=== PATIENT | male | born 1985 ===

== ENCOUNTER 2017-01-13 08:38 | Inpatient (IN) | payer OTHER ==
[2017-01-13] MEDS ORDERED: Sodium Chloride 0.9% 1,000 ML IV STA ×2 (08:55→12:11)
[2017-01-13] MEDS ORDERED: TDAP Vaccine 0.5 mL Syr IM ONE (08:58)
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
[2017-01-13 09:32] LABS: BASO # 0.1 K/uL (0.0-0.2); BASO % 1.1 % (0.0-2.0); EOS # 0.1 K/uL (0.0-0.7); EOS % 1.4 % (0.0-4.0); HEMATOCRIT 43.4 % (35.0-51.0); LYMPH # 2.5 K/uL (1.0-4.3); LYMPH % 38.1 % (20.0-40.0); MEAN CELL VOLUME 91.3 fl (80.0-94.0); MEAN CORPUSCULAR HEMOGLOBIN 31.5 pg (27.0-31.0); MEAN CORPUSCULAR HGB CONC 34.6 g/dL (33.0-37.0); MONO # 0.5 K/uL (0.0-0.8); MONO % 7.9 % (0.0-10.0); NEUT # 3.4 K/uL (1.8-7.0); NEUT % 51.5 % (50.0-75.0); NRBC % 0.2 % (0.0-0.0); WHITE BLOOD COUNT 6.7 K/uL (4.8-10.8)
[2017-01-13 09:47] LABS: PARTIAL THROMBOPLASTIN TIME 26.6 Seconds (25.6-37.1)
[2017-01-13 09:54] LABS: ALB/GLOB RATIO 1.3 (1.0-2.1); ALKALINE PHOSPHATASE 79 U/L (38-126); ALT/SGPT 40 U/L (21-72); AST/SGOT 31 U/L (17-59); BILIRUBIN,TOTAL 0.6 mg/dl (0.2-1.3); BLOOD UREA NITROGEN 18 mg/dl (9-20); CALCIUM 9.7 mg/dL (8.4-10.2); CARBON DIOXIDE 25 mmol/L (22-30); CHLORIDE 103 mmol/L (98-107); GFR AFRICAN-AMERICAN > 60; GLUCOSE,RANDOM 102 mg/dL (75-110); POTASSIUM 3.8 MMOL/L (3.6-5.0); SODIUM 142 mmol/l (132-148); TOTAL PROTEIN 8.8 G/DL (6.3-8.2)
--- NOTE | 2017-01-13 10:32 | CT ---
PROCEDURE: CT HEAD WITHOUT CONTRAST. HISTORY: Fall COMPARISON: None available. TECHNIQUE: Axial computed tomography images were obtained through the head/brain without intravenous contrast. Radiation dose: Total exam DLP = 920.29 mGy-cm. This CT exam was performed using one or more of the following dose reduction techniques: Automated exposure control, adjustment of the mA and/or kV according to patient size, and/or use of iterative reconstruction technique. FINDINGS: HEMORRHAGE: No intracranial hemorrhage. BRAIN: Large soft tissue hematoma superior posterior scalp. No mass effect or edema. The molina-white matter differentiation appears intact. Please note that MRI with diffusion imaging is more sensitive in the detection of acute ischemic event. VENTRICLES: No hydrocephalus. CALVARIUM: Unremarkable. PARANASAL SINUSES: Unremarkable as visualized. No significant inflammatory changes. MASTOID AIR CELLS: Unremarkable as visualized. No inflammatory changes. OTHER FINDINGS: Deviated nasal septum. IMPRESSION: Large soft tissue hematoma, superior posterior scalp.
--- NOTE | 2017-01-13 10:46 | CT ---
PROCEDURE: CT scan cervical spine 01/13/2017 HISTORY: Fall COMPARISON: No prior TECHNIQUE: Contiguous helical/ transaxial computed tomography images were obtained of the cervical spine without the use of intravenous contrast. Coronal and sagittal reformatted images were created and reviewed. Radiation dose: Total exam DLP = 584.89 mGy-cm. This CT exam was performed using one or more of the following dose reduction techniques: Automated exposure control, adjustment of the mA and/or kV according to patient size, and/or use of iterative reconstruction technique. FINDINGS: VERTEBRAE: Current study reveals no acute compression fractures no retropulsed fragments. Vertebral bodies exhibit relatively normal stature. There is straightening of the normal cervical lordosis likely in part due to presence of a hard cervical collar. Muscle spasm may contribute. Vertebral bodies otherwise exhibit normal alignment. Facets normally aligned. DISCS/SPINAL CANAL/NEURAL FORAMINA: The mild degenerative spondylosis. At the C5-C6 level, there is minor disc space narrowing along the posterior disc margin with small osteophytic ridge disc bulge complex. The uncovertebral and facets slightly overgrown. Central canal and exit foramina appear adequate. Remaining levels exhibit relatively adequate disc height. No disc herniation or significant disc bulge. Central canal and exit foramina appear adequate. PARASPINAL SOFT TISSUES: Prevertebral and and paraspinal soft tissues unremarkable OTHER FINDINGS: Lung apices clear. IMPRESSION: No fracture seen. Mild straightening of the normal upper cervical lordosis. Minor degenerative spondylosis most notably affecting C5-C6 level. No evidence of any significant canal nor foraminal stenosis.
--- NOTE | 2017-01-13 10:51 | CT ---
PROCEDURE: CT scan lumbar spine dated 01/13/2017 HISTORY: Status post fall COMPARISON: No prior TECHNIQUE: Contiguous helical/transaxial computed tomography images were obtained of the lumbar spine without the use of intravenous contrast. Coronal and sagittal reformatted images were created and reviewed. Radiation dose: Total exam DLP = 1549.55 mGy-cm. This CT exam was performed using one or more of the following dose reduction techniques: Automated exposure control, adjustment of the mA and/or kV according to patient size, and/or use of iterative reconstruction technique. FINDINGS: Current study reveals no evidence of acute displaced or compression fracture nor retropulsed fragments. Vertebral bodies exhibit normal stature . There is straightening of the normal lumbar lordosis however vertebral bodies otherwise exhibit normal alignment. Facets normally aligned. There is mild posterior disc space narrowing seen at the L5-S1 level. Small central and bilateral (left slightly larger than right) disc herniation indents the ventral surface of the thecal sac however the overall central canal is quite capacious at this level. Facet joints are slightly overgrown. Exit foramina appear adequate. At the L4-L5 level, there is also mild posterior disc space narrowing with small to medium-sized central and bilateral disc bulge that also compresses the ventral surface of the thecal sac. Central canal appears adequate. Facets a prominent. Exit foramina are adequate. Remaining levels exhibit adequate disc height. No disc herniation or significant disc bulge. Central canal and exit foramina appear adequate at the remaining levels. Note made of a distended urinary bladder nonspecific. Impression: No acute fractures. Minor degenerative spondylosis L5-S1 and L4-L5 levels as described above with small disc herniations and mild to moderate disc bulging changes at each level respectively.
--- NOTE | 2017-01-13 11:46 | RAD ---
HISTORY: Fall COMPARISON: No prior study available for comparison FINDINGS: LUNGS: Mild bibasilar atelectasis. . There is a rounded approximately 11 mm left on medial lung bodies overlying the left cardiac border. This could represent a granuloma however follow-up of CT scan of the chest is recommended to exclude parenchymal nodule or mass. Note that these findings were discussed with Dr. Baldwin at 11:15 a.m. with written down and read back verification. PLEURA: No significant pleural effusion identified, no pneumothorax apparent. CARDIOVASCULAR: Heart appears borderline enlarged. OSSEOUS STRUCTURES: Incidental note is made of a slight cortical irregularity superomedial aspect of the left scapula. Rule out nondisplaced fracture versus anatomic variation VISUALIZED UPPER ABDOMEN: Normal. OTHER FINDINGS: None. IMPRESSION: Mild bibasilar atelectasis. Mild bibasilar atelectasis. . There is a rounded approximately 11 mm left on medial lung bodies overlying the left cardiac border. This could represent a granuloma however follow-up of CT scan of the chest is recommended to exclude parenchymal nodule or mass. Slight cortical regularity superomedial aspect left scapula ; rule out nondisplaced fracture Note that these findings were discussed with Dr. Baldwin at 11:30 a.m. with written down and read back verification.
[2017-01-13 12:17] LABS: RBC URINE 4 /hpf (0-3); URINE BILIRUBIN NEGATIVE (NEGATIVE); URINE BLOOD SMALL (NEGATIVE); URINE COLOR STRAW (YELLOW); URINE GLUCOSE (UA) NEG (Normal); URINE KETONE NEGATIVE (NEGATIVE); URINE LEUKOCYTE ESTERASE NEG Leu/uL (Negative); URINE PROTEIN NEGATIVE (NEGATIVE); URINE UROBILINOGEN 0.2-1.0 mg/dL (0.2-1.0); WBC URINE < 1 /hpf (0-5)
--- NOTE | 2017-01-13 12:22 | RAD ---
PROCEDURE: Radiographs of the pelvis. HISTORY: Fall COMPARISON: Correlation made with the concurrent CT scan of the mid lumbar spine which partially image the pelvis. FINDINGS: BONES: Pelvic Bones: Unremarkable. Hips: Grossly unremarkable. JOINTS: Sacroiliac Joints: Unremarkable Pubic Symphysis: Unremarkable. OTHER FINDINGS: Note made of a small curvilinear calcification overlying the right true pelvis nonspecific IMPRESSION: No evidence of acute displaced fracture nor dislocation. Up of
[2017-01-13] MEDS ORDERED: Silver Sulfadiazine 1% CREAM (50 gm) ONE (13:42)
[2017-01-13] MEDS: Silver Sulfadiazine 1% CREAM (50 gm) TOP SCH (14:36)
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
[2017-01-13] MEDS: Oxycodone/Acetaminophen 5/325 mg Tab PO PRN ×2 (17:27→22:28)
--- NOTE | 2017-01-13 17:31 | RAD ---
PROCEDURE: Right shoulder dated 01/13/2017. HISTORY: fracture COMPARISON: No prior. TECHNIQUE: Two views of the right shoulder performed FINDINGS: Current study reveals no definitive radiographic evidence of acute displaced fracture nor dislocation. The osseous structures intact. No significant osteoarthritis. IMPRESSION: No evidence of acute displaced fracture nor dislocation. If symptoms persist, consider followup CT scan or MRI if further evaluation is required
--- NOTE | 2017-01-13 17:33 | RAD ---
PROCEDURE: Right hip dated 01/13/2017 at 4:55 p.m. HISTORY: fracture COMPARISON: Comparison made with pelvis dated 01/13/2017 at 0957 hours FINDINGS: BONES: No evidence of acute displaced fracture nor dislocation. The osseous structures appear intact. Both femoral heads are appropriately located within the respective acetabula. JOINTS: Joint spaces preserved SOFT TISSUES: Normal. OTHER FINDINGS: None. IMPRESSION: No fracture seen. If symptoms persist or occult fracture suspected clinically recommend repeat followup CT scan of the pelvis and hips.
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
[2017-01-14] MEDS: Oxycodone/Acetaminophen 5/325 mg Tab PO PRN ×2 (04:32→20:37)
[2017-01-14] MEDS: Silver Sulfadiazine 1% CREAM (50 gm) TOP SCH ×3 (09:54→16:49)
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
--- NOTE | 2017-01-14 13:34 | CP.PCM.PN ---
Subjective - Date & Time of Evaluation Date of Evaluation: 01/14/17 Time of Evaluation: 13:30 - Subjective Subjective: No chest pain. NS on monitor Headache, blurry vision ,nausea and vomiting Objective - Vital Signs/Intake and Output Vital Signs (last 24 hours): Temp Pulse Resp BP Pulse Ox 98.4 F 66 20 120/68 99 01/14/17 12:11 01/14/17 12:11 01/14/17 12:11 01/14/17 12:11 01/14/17 12:11 - Medications Medications: Current Medications Acetaminophen (Tylenol 325mg Tab) 650 mg PO Q6 PRN PRN Reason: Headache Last Admin: 01/14/17 10:44 Dose: 650 mg Ondansetron HCl (Zofran Inj) 4 mg IVP Q6 PRN PRN Reason: Nausea/Vomiting Last Admin: 01/14/17 09:58 Dose: 4 mg Oxycodone/Acetaminophen (Percocet 5/325 Mg Tab) 1 tab PO Q4 PRN PRN Reason: Pain, moderate (4-7) Stop: 01/16/17 16:23 Last Admin: 01/14/17 04:32 Dose: 1 tab Silver Sulfadiazine (Silvadene 1% 50 Gm) 1 applic TOP TID BECKY Last Admin: 01/14/17 12:05 Dose: 1 applic - Labs Labs: PT 10.6 Seconds (9.8-13.1) 01/13/17 09:25 INR 0.9 (0.9-1.2) 01/13/17 09:25 APTT 26.6 Seconds (25.6-37.1) 01/13/17 09:25 - Neck Exam Neck Exam: Normal Inspection - Respiratory Exam Respiratory Exam: Clear to Ausculation Bilateral - Cardiovascular Exam Cardiovascular Exam: REGULAR RHYTHM - GI/Abdominal Exam GI & Abdominal Exam: Normal Bowel Sounds - Extremities Exam Extremities Exam: Normal Inspection Assessment and Plan - Assessment and Plan (Free Text) Assessment: S/p Electrocution and fall R/o Subdural hematoma Plan: F/U Echo Repeat Head CT scan Discussed with ACTUARIAL INTERN EKGs reviewed
--- NOTE | 2017-01-14 15:18 | CT ---
PROCEDURE: CT HEAD WITHOUT CONTRAST. HISTORY: r/o subdural COMPARISON: Noncontrast head CT performed 01/13/17 TECHNIQUE: Axial computed tomography images were obtained through the head/brain without intravenous contrast. Radiation dose: Total exam DLP = 961.17 mGy-cm. This CT exam was performed using one or more of the following dose reduction techniques: Automated exposure control, adjustment of the mA and/or kV according to patient size, and/or use of iterative reconstruction technique. FINDINGS: HEMORRHAGE: No intracranial hemorrhage. BRAIN: No mass effect or edema. The molina-white matter differentiation appears intact.Please note that MRI with diffusion imaging is more sensitive in the detection of acute ischemic event. VENTRICLES: No hydrocephalus. CALVARIUM: Unremarkable. PARANASAL SINUSES: Unremarkable as visualized. No significant inflammatory changes. MASTOID AIR CELLS: Unremarkable as visualized. No inflammatory changes. OTHER FINDINGS: Persistent but improved posterior scalp hematoma. Skin autumn. IMPRESSION: Persistent but improved posterior scalp hematoma. Skin autumn. No acute intracranial pathology identified.
[2017-01-14 23:48] VITALS: RESP 20
[2017-01-15] MEDS: Oxycodone/Acetaminophen 5/325 mg Tab PO PRN (04:46)
[2017-01-15] MEDS: Silver Sulfadiazine 1% CREAM (50 gm) TOP SCH ×2 (08:12→12:39)
--- NOTE | 2017-01-15 09:07 | CP.PCM.DIS ---
Provider - Provider Date of Admission: 01/14/17 15:18 Attending physician: Tl Loza MD Time Spent in preparation of Discharge (in minutes): 32 Diagnosis - Discharge Diagnosis (1) Electrocution Status: Acute (2) Head injury Status: Acute (3) Scalp laceration Status: Acute Hospital Course - Lab Results Lab Results: Most Recent Lab Values WBC 6.7 K/uL (4.8-10.8) 01/13/17 09:25 RBC 4.75 Mil/uL (4.40-5.90) 01/13/17 09:25 Hgb 15.0 g/dL (12.0-18.0) 01/13/17 09:25 Hct 43.4 % (35.0-51.0) 01/13/17 09:25 MCV 91.3 fl (80.0-94.0) 01/13/17 09:25 MCH 31.5 pg (27.0-31.0) H 01/13/17 09:25 MCHC 34.6 g/dL (33.0-37.0) 01/13/17 09:25 RDW 13.0 % (11.5-14.5) 01/13/17 09:25 Plt Count 242 K/uL (130-400) 01/13/17 09:25 MPV 8.0 fl (7.2-11.7) 01/13/17 09:25 Neut % (Auto) 51.5 % (50.0-75.0) 01/13/17 09:25 Lymph % (Auto) 38.1 % (20.0-40.0) 01/13/17 09:25 Owen % (Auto) 7.9 % (0.0-10.0) 01/13/17 09:25 Eos % (Auto) 1.4 % (0.0-4.0) 01/13/17 09:25 Baso % (Auto) 1.1 % (0.0-2.0) 01/13/17 09:25 Neut # 3.4 K/uL (1.8-7.0) 01/13/17 09:25 Lymph # 2.5 K/uL (1.0-4.3) 01/13/17 09:25 Owen # 0.5 K/uL (0.0-0.8) 01/13/17 09:25 Eos # 0.1 K/uL (0.0-0.7) 01/13/17 09:25 Baso # 0.1 K/uL (0.0-0.2) 01/13/17 09:25 PT 10.6 Seconds (9.8-13.1) 01/13/17 09:25 INR 0.9 (0.9-1.2) 01/13/17 09:25 APTT 26.6 Seconds (25.6-37.1) 01/13/17 09:25 Sodium 142 mmol/l (132-148) 01/13/17 09:25 Potassium 3.8 MMOL/L (3.6-5.0) 01/13/17 09:25 Chloride 103 mmol/L (98-107) 01/13/17 09:25 Carbon Dioxide 25 mmol/L (22-30) 01/13/17 09:25 Anion Gap 17 (10-20) 01/13/17 09:25 BUN 18 mg/dl (9-20) 01/13/17 09:25 Creatinine 1.0 mg/dL (0.8-1.5) 01/13/17 09:25 Est GFR ( Amer) > 60 01/13/17 09:25 Est GFR (Non-Af Amer) > 60 01/13/17 09:25 Random Glucose 102 mg/dL (75-110) 01/13/17 09:25 Calcium 9.7 mg/dL (8.4-10.2) 01/13/17 09:25 Total Bilirubin 0.6 mg/dl (0.2-1.3) 01/13/17 09:25 AST 31 U/L (17-59) 01/13/17 09:25 ALT 40 U/L (21-72) 01/13/17 09:25 Alkaline Phosphatase 79 U/L (38-126) 01/13/17 09:25 Total Creatine Kinase 155 U/L (55-170) 01/13/17 09:25 Troponin I 0.0190 ng/mL (0.00-0.120) 01/13/17 09:25 Total Protein 8.8 G/DL (6.3-8.2) H 01/13/17 09:25 Albumin 5.0 g/dL (3.5-5.0) 01/13/17 09:25 Globulin 3.9 gm/dL (2.2-3.9) 01/13/17 09:25 Albumin/Globulin Ratio 1.3 (1.0-2.1) 01/13/17 09:25 Urine Color Straw (YELLOW) 01/13/17 08:57 Urine Clarity Clear (Clear) 01/13/17 08:57 Urine pH 6.0 (5.0-8.0) 01/13/17 08:57 Ur Specific Temple 1.010 (1.003-1.030) 01/13/17 08:57 Urine Protein Negative mg/dL (NEGATIVE) 01/13/17 08:57 Urine Glucose (UA) Neg mg/dL (Normal) 01/13/17 08:57 Urine Ketones Negative mg/dL (NEGATIVE) 01/13/17 08:57 Urine Blood Small (NEGATIVE) 01/13/17 08:57 Urine Nitrate Negative (NEGATIVE) 01/13/17 08:57 Urine Bilirubin Negative (NEGATIVE) 01/13/17 08:57 Urine Urobilinogen 0.2-1.0 mg/dL (0.2-1.0) 01/13/17 08:57 Ur Leukocyte Esterase Neg Marisa/uL (Negative) 01/13/17 08:57 Urine RBC (Auto) 4 /hpf (0-3) H 01/13/17 08:57 Urine Microscopic WBC < 1 /hpf (0-5) 01/13/17 08:57 - Hospital Course Hospital Course: FEELS WELL TODAY VOMITED ONCE AFTER TAKING PERCOCET TELE-RSR NO HEADACHES/DIZZINESS Discharge Exam - Head Exam Head Exam: NORMOCEPHALIC Additional comments: OCCIPITAL LACERATION HEALING - Eye Exam Eye Exam: EOMI, Normal appearance, PERRL Pupil Exam: NORMAL ACCOMODATION, PERRL - GI/Abdominal Exam GI & Abdominal Exam: Normal Bowel Sounds - Rectal Exam Rectal Exam: NORMAL INSPECTION - Neurological Exam Neurological exam: Alert, CN II-XII Intact, Normal Gait, Oriented x3, Reflexes Normal - Psychiatric Exam Psychiatric exam: Normal Affect, Normal Mood - Skin Skin Exam: Dry, Intact, Normal Color, Warm Discharge Plan - Follow Up Plan Condition: GUARDED Disposition: HOME/ ROUTINE Additional Instructions: CTSCAN OF HEAD-REPEAT--UNREMAKABLE FOR BLEED D/C HOME TODAY IF CLEARED BY CARDIOLOGY FOLLOW UP WITH PMD
--- NOTE | 2017-01-15 11:24 | CARD ---
APPROVED REPORT EXAM: Two-dimensional and M-mode echocardiogram with Doppler and color Doppler. Other Information Quality : GoodRhythm : NSR INDICATION LV Function:SystolicDiastolic Eletrocusion 2D DIMENSIONS IVSd1.00 (0.7-1.1cm)LVDd5.67 (3.9-5.9cm) LVOT Diameter2.72 (1.8-2.4cm)PWd1.22 (0.7-1.1cm) IVSs1.45 (0.8-1.2cm)LVDs3.94 (2.5-4.0cm) FS (%) 30.6 %PWs1.49 (0.8-1.2cm) M-Mode DIMENSIONS Left Atrium (MM)3.71 (2.5-4.0cm)IVSd1.47 (0.7-1.1cm) Aortic Root3.24 (2.2-3.7cm)LVDd5.71 (4.0-5.6cm) Aortic Cusp Exc.2.32 (1.5-2.0cm)PWd1.09 (0.7-1.1cm) IVSs1.74 cmFS (%) 34 % LVDs3.76 (2.0-3.8cm)PWs1.41 cm Mitral Valve MV E Fofhgyhi59.4cm/sMV DECEL [id number] A Ixlzpzei04.4cm/s MV FNA63dyS/A ratio1.8MVA (PHT)3.94cm2 TDI Lateral E' Peak V13.93cm/sMedial E' Peak V10.67cm/sE/Lateral E'5.1 E/Medial E'6.6 Pulmonary Valve PV Peak Yuwvxxrx960.3cm/s Tricuspid Valve TR Peak Biksnyqa144iy/sRAP XXSLDUEU67gvLuQS Peak Gr.16mmHg VQZJ15toHc LEFT VENTRICLE The left ventricle is normal size. There is normal left ventricular wall thickness. The left ventricular function is normal. The left ventricular ejection fraction is 50-55% There is normal LV segmental wall motion. The left ventricular diastolic function is normal. No left ventricle thrombus noted on this study. There is no ventricular septal defect visualized. There is no left ventricular aneurysm. There is no mass noted in the left ventricle. RIGHT VENTRICLE The right ventricle is normal size. There is normal right ventricular wall thickness. The right ventricular systolic function is normal. ATRIA The left atrium size is normal. The right atrium size is normal. The interatrial septum is intact with no evidence for an atrial septal defect. AORTIC VALVE The aortic valve is normal in structure and function. No aortic regurgitation is present. There is no aortic valvular stenosis. There is no aortic valvular vegetation. MITRAL VALVE The mitral valve is normal in structure and function. There is no evidence of mitral valve prolapse. There is no mitral valve stenosis. There is no mitral valve regurgitation noted. TRICUSPID VALVE The tricuspid valve is normal in structure and function. There is no tricuspid valve regurgitation noted. There is no tricuspid valve prolapse or vegetation. There is no tricuspid valve stenosis. PULMONIC VALVE The pulmonary valve is normal in structure and function. There is no pulmonic valvular regurgitation. There is no pulmonic valvular stenosis. GREAT VESSELS The aortic root is normal in size. The ascending aorta is normal in size. The IVC is normal in size and collapses >50% with inspiration. PERICARDIAL EFFUSION The pericardium appears normal. There is no pleural effusion. <Conclusion> Normal Echocardiogram
--- NOTE | 2017-01-15 11:42 | CARD ---
APPROVED REPORT EKG Measurement Heart [id number] WI [id number] <Conclusion> Sinus bradycardia with sinus arrhythmia Otherwise normal ECG
--- NOTE | 2017-01-15 11:55 | CARD ---
APPROVED REPORT EKG Measurement Heart [id number] RI [id number] <Conclusion> Normal sinus rhythm Normal ECG
[2017-01-15 12:16] VITALS: BP 132/71; PULSE 68; TEMP 98.2
--- NOTE | 2017-01-15 12:22 | CP.PCM.PN ---
Subjective - Date & Time of Evaluation Date of Evaluation: 01/15/17 Time of Evaluation: 12:20 - Subjective Subjective: c/o headache and nausea repeat head CT scan persistent but improved scalp hematoma Echo reviewed Normal study Objective - Vital Signs/Intake and Output Vital Signs (last 24 hours): Temp Pulse Resp BP Pulse Ox 98.2 F 68 20 132/71 100 01/15/17 12:16 01/15/17 12:16 01/15/17 12:16 01/15/17 12:16 01/15/17 12:16 - Medications Medications: Current Medications Acetaminophen (Tylenol 325mg Tab) 650 mg PO Q6 PRN PRN Reason: Headache Last Admin: 01/15/17 06:37 Dose: 650 mg Acetaminophen (Tylenol 325mg Tab) 650 mg PO ONCE ONE Stop: 01/15/17 12:05 Ondansetron HCl (Zofran Inj) 4 mg IVP Q6 PRN PRN Reason: Nausea/Vomiting Last Admin: 01/14/17 09:58 Dose: 4 mg Oxycodone/Acetaminophen (Percocet 5/325 Mg Tab) 1 tab PO Q4 PRN PRN Reason: Pain, moderate (4-7) Stop: 01/16/17 16:23 Last Admin: 01/15/17 04:46 Dose: 1 tab Silver Sulfadiazine (Silvadene 1% 50 Gm) 1 applic TOP TID BECKY Last Admin: 01/15/17 08:12 Dose: 1 applic - Labs Labs: PT 10.6 Seconds (9.8-13.1) 01/13/17 09:25 INR 0.9 (0.9-1.2) 01/13/17 09:25 APTT 26.6 Seconds (25.6-37.1) 01/13/17 09:25 - Head Exam Additional comments: scalp suture and edema posteriorly - Neck Exam Neck Exam: Normal Inspection - Respiratory Exam Respiratory Exam: Clear to Ausculation Bilateral - Extremities Exam Extremities Exam: Normal Inspection Assessment and Plan - Assessment and Plan (Free Text) Assessment: S/P Electricusion S/P fall and scalp injury Plan: Can be dischared from the cardiac point Discussed with PMD and BOAT [employer]ER
[2017-01-22 09:29] VITALS: O2SAT 98
== END 2017-01-15 14:49 | disposition home or self-care (01) | DRG 923 ==
LOC: H.ER 08:38 → H.ERHOLD 13:03 → H.TEL 15:39 → OBSVTOIN 01-14 15:18
PROVIDERS: ADMIT Internal Medicine Pulmonary Disease; ATTEND Internal Medicine Pulmonary Disease
PROC: 3E0234Z Introduction of Serum, Toxoid and Vaccine into Muscle, Percutaneous Approach (ICD-10-PCS; principal; 2017-01-14)
PROC: 0HQ0XZZ Repair Scalp Skin, External Approach (ICD-10-PCS; 2017-01-14)
DX: T75.4XXA Electrocution, initial encounter (principal); S01.01XA Laceration without foreign body of scalp, initial encounter; Z23 Encounter for immunization; W86.0XXA Exposure to domestic wiring and appliances, initial encounter; W11.XXXA Fall on and from ladder, initial encounter; Y92.9 Unspecified place or not applicable; Y99.0 Civilian activity done for income or pay